=== PATIENT | female | born 2000 | race Caucasian/White ===

== ENCOUNTER 2021-05-23 19:06 | Emergency (ER) | payer SELFPAY ==
[~2021-05-23] VITALS: Ht 157.5 cm; Wt 52.0 kg
[2021-05-23 19:07] VITALS: BP 101/67
== END 2021-05-23 21:47 | disposition left against medical advice (07) ==
LOC: M ED 19:06
DX: Z53.21 Procedure and treatment not carried out due to patient leaving prior to being seen by health care provider (principal)